=== PATIENT | male | born 1930 | race Caucasian/White ===

== ENCOUNTER → 2018-08-10 | Outpatient (CLI) | payer MEDICARE | LOC: CARD 10:59 | PROVIDERS: ATTEND Internal Medicine Cardiovascular Disease | DX: I48.91 Unspecified atrial fibrillation (principal) | CPT/HCPCS: 93225; 93226 ==

== ENCOUNTER → 2018-10-29 | Outpatient (CLI) | payer MEDICARE ==
--- NOTE | 2018-10-29 10:41 | Diagnostic Imaging Report ---
PATIENT HISTORY: TRIGGER FINGER OF RIGHT AND LEFT RING FINGER. TECHNIQUE: 3 views of the right and left hands. COMPARISON: None FINDINGS: Right hand: No acute fracture is seen in the right hand. Alignment appears normal, although there is a somewhat [place]an-neck deformity of the third finger. Degenerative changes are noted at the second distal interphalangeal joint. There appears to be mild erosive changes at the fifth proximal phalangeal base. Left hand: No acute fracture or dislocation is seen in the left hand. There are mild degenerative changes at the basal joints of the thumb. There is questionable erosive change at the ulnar aspect of the third middle phalangeal head. There appears to be a small erosion at the radial aspect of the fifth proximal phalangeal base and at the first metacarpal head. There are superimposed degenerative changes seen in the left hand. IMPRESSION: 1. No acute fracture seen in the bilateral hands. 2. 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 3. [place]-neck deformity of the right third finger. Dictated by: Dictated on workstation # [id number]
== END ==
LOC: RAD FS 09:41
PROVIDERS: ATTEND Nurse Practitioner
DX: M19.041 Primary osteoarthritis, right hand (principal); M19.042 Primary osteoarthritis, left hand; M85.842 Other specified disorders of bone density and structure, left hand; M85.841 Other specified disorders of bone density and structure, right hand; M65.342 Trigger finger, left ring finger